=== PATIENT | female | born 2000 | race Caucasian/White ===

== ENCOUNTER 2020-07-09 14:08 | Emergency (ER) | payer MEDICAID, OTHER ==
[~2020-07-09] VITALS: Ht 165.1 cm; Wt 67.0 kg
[2020-07-09] MEDS ORDERED: ACETAMINOPHEN WITH CODEINE 300/30MG TABLET PO ONE (15:00)
[2020-07-09] MEDS ORDERED: HYDROCODONE/ACETAMINOPHEN 5/325MG TABLET PO ONE (19:45)
[2020-07-09 19:52] VITALS: BP 117/81
== END 2020-07-09 19:59 | disposition home or self-care (01) ==
LOC: ER 14:08
DX: R10.9 Unspecified abdominal pain (principal); M25.521 Pain in right elbow; M79.18 Myalgia, other site; V43.62XA Car passenger injured in collision with other type car in traffic accident, initial encounter; Y93.9 Activity, unspecified; Y92.410 Unspecified street and highway as the place of occurrence of the external cause
CPT/HCPCS: 71250; 73030; 73070; 73110; 73120; 74176; 81025; 99285

== ENCOUNTER 2022-11-06 17:03 | Inpatient (IN) | payer MEDICAID ==
[~2022-11-06] VITALS: Ht 157.5 cm; Wt 71.2 kg
[2022-11-06 18:13] LABS: BASOPHILS % 0.4 % (0.0-2.0); EOSINOPHILS % 0.1 % (0.0-5.0); HEMATOCRIT. 35.4 % (36.0-48.0); HEMOGLOBIN. 12.3 g/dL (12.0-16.0); LYMPHOCYTES % 28.4 % (20.0-50.0); MEAN CORPUSCULAR HEMOGLOBIN 31.8 pg (28.0-32.0); MEAN CORPUSCULAR VOLUME 91.4 fL (81.0-99.0); MEAN PLATELET VOLUME 6.8 fl (7.4-10.4); NEUTROPHILS % 65.1 % (40.0-76.0); PLATELET 323 x1000/uL (130-400); RED BLOOD CELL COUNT 3.88 mill/uL (4.2-5.4); RED CELL DISTRIBUTION WIDTH 13.7 % (11.6-14.6)
[2022-11-06 18:19] LABS: CHLORIDE 107 mEq/L (98-107)
[2022-11-06 18:42] LABS: B-HCG QUANTITATIVE 11787 mIU/mL (<3)
[2022-11-07 00:12] LABS: CLARITY URINE CLOUDY (CLEAR); COLOR URINE YELLOW (YELLOW); KETONES URINE 4+ (NEGATIVE); LEUKOCYTE ESTERASE URINE 1+ (NEGATIVE); NITRITE URINE NEGATIVE (NEGATIVE); OCCULT BLOOD URINE NEGATIVE (NEGATIVE); PROTEIN URINE 1+ (NEGATIVE); SPECIFIC GRAVITY URINE 1.028 (1.005-1.030)
[2022-11-07] MEDS ORDERED: METOCLOPRAMIDE HCL 10MG/2ML VIAL IV ONE (01:00)
[2022-11-07] MEDS ORDERED: SODIUM CHLORIDE 0.9% 1,000 ML IV ONE (01:00)
[2022-11-07] MEDS ORDERED: DIPHENHYDRAMINE 50MG/ML VIAL IV ONE ×2 (01:00→05:30)
[2022-11-07] MEDS ORDERED: LEVETIRACETAM 1000MG PREMIX 100 ML IV NR (03:09)
[2022-11-07] MEDS ORDERED: MORPHINE SULFATE 2 MG/ML CPJ (NOT FOR IM USE) IV ONE ×2 (03:46→08:15)
[2022-11-07] MEDS ORDERED: ONDANSETRON HCL 4MG/2ML INJ IV ONE (08:15)
[2022-11-07] MEDS ORDERED: ACETAMINOPHEN 325MG TABLET PO ONE (08:15)
[2022-11-07] MEDS ORDERED: PYRIDOXINE HCL 50MG TABLET PO SCH (08:30)
[2022-11-07] MEDS ORDERED: DEXT 5%/0.9% NACL 1,000 ML IV ONE (09:00)
[2022-11-07] MEDS: DEXT 5%/0.45% NACL 1000ML 1,000 ML IV SCH ×2 (11:00→21:00)
[2022-11-07] MEDS ORDERED: NALOXONE HCL 0.4MG/ML VIAL IV PRN (11:00)
[2022-11-07] MEDS: PANTOPRAZOLE SODIUM 40 MG/VIAL IV SCH (11:30)
[2022-11-07] MEDS ORDERED: MORPHINE SULFATE 2 MG/ML CPJ (NOT FOR IM USE) IV PRN (11:30)
[2022-11-07] MEDS ORDERED: CEFTRIAXONE 1 G PREMIX 50 ML IV SCH (12:00)
[2022-11-07 20:00] VITALS: BP 122/77
[2022-11-07] MEDS ORDERED: LEVETIRACETAM 500 MG in SODIUM CHLORIDE 0.9% 100 ML IV SCH (20:15)
[2022-11-07] MEDS ORDERED: MAGNESIUM HYDROXIDE 400MG/5ML 30ML UDC PO SCH (20:15)
[2022-11-07] MEDS: HYDROCODONE/ACETAMINOPHEN 5/325MG TABLET PO PRN (20:16)
[2022-11-07] MEDS: ONDANSETRON HCL 4MG/2ML INJ IV PRN (20:17)
[2022-11-07] MEDS: LEVETIRACETAM 500MG PREMIX 100 ML IV SCH (21:11)
[2022-11-07 22:00] VITALS: BP 122/71
[2022-11-08] VITALS: BP 112/76
[2022-11-08 04:00] VITALS: BP 102/68
[2022-11-08] MEDS: MORPHINE SULFATE 2 MG/ML CPJ (NOT FOR IM USE) IV PRN ×2 (06:22→20:52)
[2022-11-08] MEDS: DEXT 5%/0.45% NACL 1000ML 1,000 ML IV SCH ×2 (06:22→17:44)
[2022-11-08] MEDS: ONDANSETRON HCL 4MG/2ML INJ IV PRN ×2 (06:28→17:42)
[2022-11-08 07:09] LABS: BASOPHILS % 0.3 % (0.0-2.0); EOSINOPHILS % 0.8 % (0.0-5.0); HEMATOCRIT. 34.9 % (36.0-48.0); HEMOGLOBIN. 12.2 g/dL (12.0-16.0); MEAN CORPUSCULAR VOLUME 91.7 fL (81.0-99.0); MEAN PLATELET VOLUME 6.9 fl (7.4-10.4); MONOCYTES % 7.5 % (2.0-8.0); NEUTROPHILS % 53.4 % (40.0-76.0); PLATELET 330 x1000/uL (130-400); RED BLOOD CELL COUNT 3.81 mill/uL (4.2-5.4); RED CELL DISTRIBUTION WIDTH 13.9 % (11.6-14.6)
[2022-11-08 07:50] LABS: CHLORIDE 108 mEq/L (98-107)
[2022-11-08 12:00] VITALS: BP 117/65
[2022-11-08 16:00] VITALS: BP 120/65
[2022-11-08] MEDS: LEVETIRACETAM 500MG PREMIX 100 ML IV SCH ×2 (17:42→21:51)
[2022-11-08] MEDS: CEFTRIAXONE 1,000 MG in DEXTROSE 5% WATER 50 ML IV SCH ×4 (17:43→20:42)
[2022-11-08] MEDS: PANTOPRAZOLE SODIUM 40 MG/VIAL IV SCH (17:43)
[2022-11-08] MEDS: DOCUSATE SODIUM 250MG CAPSULE PO SCH (18:05)
[2022-11-08 20:00] VITALS: BP 108/66
[2022-11-09] VITALS: BP 105/77
[2022-11-09] MEDS: ONDANSETRON HCL 4MG/2ML INJ IV PRN ×3 (00:20→18:12)
[2022-11-09] MEDS: DEXT 5%/0.45% NACL 1000ML 1,000 ML IV SCH ×3 (03:42→23:40)
[2022-11-09 04:00] VITALS: BP 101/65
[2022-11-09 08:00] VITALS: BP 110/69
[2022-11-09] MEDS: PANTOPRAZOLE SODIUM 40 MG/VIAL IV SCH (08:51)
[2022-11-09] MEDS: DOCUSATE SODIUM 250MG CAPSULE PO SCH (08:51)
[2022-11-09 12:00] VITALS: BP 110/70
[2022-11-09] MEDS: LEVETIRACETAM 500MG PREMIX 100 ML IV SCH ×2 (13:03→20:47)
[2022-11-09] MEDS: MORPHINE SULFATE 2 MG/ML CPJ (NOT FOR IM USE) IV PRN (18:05)
[2022-11-09 20:00] VITALS: BP 109/75
[2022-11-09] MEDS ORDERED: ONDA4TAB50 MT (20:14)
[2022-11-09] MEDS ORDERED: KEPP500 MT (20:16)
[2022-11-10] VITALS: BP 119/70
[2022-11-10] MEDS: ONDANSETRON HCL 4MG/2ML INJ IV PRN ×2 (00:41→08:45)
[2022-11-10 04:00] VITALS: BP 102/69
[2022-11-10] MEDS: PANTOPRAZOLE SODIUM 40 MG/VIAL IV SCH (08:36)
[2022-11-10] MEDS: DOCUSATE SODIUM 250MG CAPSULE PO SCH (08:37)
[2022-11-10] MEDS: LEVETIRACETAM 500MG PREMIX 100 ML IV SCH ×2 (08:37→21:44)
[2022-11-10] MEDS: DEXT 5%/0.45% NACL 1000ML 1,000 ML IV SCH ×2 (08:45→18:30)
[2022-11-10] MEDS: MAGNESIUM/ALUMINUM HYDROXIDE/SIMETHICONE 30ML UDC PO PRN (10:17)
[2022-11-10] MEDS: MORPHINE SULFATE 2 MG/ML CPJ (NOT FOR IM USE) IV PRN ×2 (11:39→18:30)
[2022-11-10] MEDS: ONDANSETRON HCL 4MG/2ML INJ IV SCH ×2 (14:21→21:39)
[2022-11-10] MEDS: HYDROCODONE/ACETAMINOPHEN 5/325MG TABLET PO PRN ×2 (14:21→21:27)
[2022-11-10] MEDS: CEFTRIAXONE 1,000 MG in DEXTROSE 5% WATER 50 ML IV SCH (15:00)
[2022-11-10] MEDS ORDERED: POTASSIUM CHLORIDE 20MEQ TABLET SR PO NR (15:15)
[2022-11-10] MEDS: METOCLOPRAMIDE HCL 10MG/2ML VIAL IV SCH ×2 (16:30→20:15)
[2022-11-10] MEDS ORDERED: METOCLOPRAMIDE HCL 5MG TABLET PO SCH (18:00)
[2022-11-10 20:00] VITALS: BP 116/72
[2022-11-11] VITALS: BP 105/65
[2022-11-11] MEDS: METOCLOPRAMIDE HCL 10MG/2ML VIAL IV SCH ×7 (00:46→20:06)
[2022-11-11] MEDS: MORPHINE SULFATE 2 MG/ML CPJ (NOT FOR IM USE) IV PRN ×3 (00:51→20:06)
[2022-11-11] MEDS: ONDANSETRON HCL 4MG/2ML INJ IV SCH (03:00)
[2022-11-11 04:00] VITALS: BP 96/65
[2022-11-11] MEDS: ONDANSETRON HCL 4MG/2ML INJ IV PRN (04:02)
[2022-11-11] MEDS: DEXT 5%/0.45% NACL 1000ML 1,000 ML IV SCH ×2 (05:29→15:47)
[2022-11-11] MEDS: OMEPRAZOLE 20MG CAPSULE EXTENDED RELEASE PO SCH (06:31)
[2022-11-11 07:36] LABS: CHLORIDE 109 mEq/L (98-107)
[2022-11-11 07:43] LABS: BASOPHILS % 0.3 % (0.0-2.0); EOSINOPHILS % 1.2 % (0.0-5.0); HEMATOCRIT. 34.3 % (36.0-48.0); LYMPHOCYTES % 31.7 % (20.0-50.0); MEAN CORPUSCULAR VOLUME 91.3 fL (81.0-99.0); MEAN PLATELET VOLUME 6.9 fl (7.4-10.4); MONOCYTES % 9.4 % (2.0-8.0); NEUTROPHILS % 57.4 % (40.0-76.0); PLATELET 354 x1000/uL (130-400); RED BLOOD CELL COUNT 3.76 mill/uL (4.2-5.4)
[2022-11-11] MEDS: DOCUSATE SODIUM 250MG CAPSULE PO SCH (12:07)
[2022-11-11] MEDS: LEVETIRACETAM 500MG PREMIX 100 ML IV SCH ×2 (12:10→20:35)
[2022-11-11] MEDS: CEFTRIAXONE 1,000 MG in DEXTROSE 5% WATER 50 ML IV SCH (14:04)
[2022-11-12] VITALS: BP 116/72
[2022-11-12] MEDS: MORPHINE SULFATE 2 MG/ML CPJ (NOT FOR IM USE) IV PRN ×3 (00:18→11:24)
[2022-11-12] MEDS: METOCLOPRAMIDE HCL 10MG/2ML VIAL IV SCH ×8 (00:18→23:34)
[2022-11-12] MEDS: DEXT 5%/0.45% NACL 1000ML 1,000 ML IV SCH ×3 (00:19→23:34)
[2022-11-12 04:00] VITALS: BP 129/85
[2022-11-12] MEDS: OMEPRAZOLE 20MG CAPSULE EXTENDED RELEASE PO SCH (07:20)
[2022-11-12 08:00] VITALS: BP 126/81
[2022-11-12] MEDS: DOCUSATE SODIUM 250MG CAPSULE PO SCH (09:00)
[2022-11-12 12:00] VITALS: BP 128/83
[2022-11-12 16:00] VITALS: BP 118/87
[2022-11-12 20:00] VITALS: BP 120/83
[2022-11-12] MEDS: ACETAMINOPHEN 325MG TABLET PO PRN (20:03)
[2022-11-12] MEDS: LEVETIRACETAM 500MG PREMIX 100 ML IV SCH (20:37)
[2022-11-12] MEDS: MAGNESIUM/ALUMINUM HYDROXIDE/SIMETHICONE 30ML UDC PO PRN (20:54)
[2022-11-13] VITALS: BP 103/67
[2022-11-13 04:00] VITALS: BP 114/63
[2022-11-13] MEDS: METOCLOPRAMIDE HCL 10MG/2ML VIAL IV SCH ×4 (04:00→16:27)
[2022-11-13] MEDS: ACETAMINOPHEN 325MG TABLET PO PRN ×2 (04:47→16:27)
[2022-11-13] MEDS: DEXT 5%/0.45% NACL 1000ML 1,000 ML IV SCH (07:00)
[2022-11-13 07:19] LABS: BASOPHILS % 0.8 % (0.0-2.0); EOSINOPHILS % 1.2 % (0.0-5.0); HEMATOCRIT. 36.4 % (36.0-48.0); HEMOGLOBIN. 13.3 g/dL (12.0-16.0); LYMPHOCYTES % 31.2 % (20.0-50.0); MEAN CORPUSCULAR HEMOGLOBIN 32.8 pg (28.0-32.0); MEAN CORPUSCULAR VOLUME 89.8 fL (81.0-99.0); MEAN PLATELET VOLUME 7.5 fl (7.4-10.4); MONOCYTES % 10.8 % (2.0-8.0); PLATELET 352 x1000/uL (130-400); RED BLOOD CELL COUNT 4.06 mill/uL (4.2-5.4); RED CELL DISTRIBUTION WIDTH 13.6 % (11.6-14.6)
[2022-11-13 08:00] VITALS: BP 95/59
[2022-11-13] MEDS: LEVETIRACETAM 500MG PREMIX 100 ML IV SCH (09:00)
[2022-11-13] MEDS: OMEPRAZOLE 20MG CAPSULE EXTENDED RELEASE PO SCH (09:42)
[2022-11-13] MEDS: DOCUSATE SODIUM 250MG CAPSULE PO SCH (09:42)
[2022-11-13 10:10] LABS: CHLORIDE 108 mEq/L (98-107)
[2022-11-13] MEDS ORDERED: METO-293 MT (11:27)
[2022-11-13 12:00] VITALS: BP 92/59
[2022-11-13 16:00] VITALS: BP 113/62
[2022-11-13 16:08] VITALS: BP 95/60
== END 2022-11-13 17:15 | disposition home or self-care (01) | DRG 566 ==
LOC: ER 17:13 → EDBEDREQ 11-07 08:22 → MICUSO 11-07 09:13 → EDBEDREQTM 11-07 09:17 → EDBEDREQ 11-07 09:17 → 6EST 11-07 21:58
PROVIDERS: ADMIT Internal Medicine; ATTEND Internal Medicine
PROC: 4A00X4Z Measurement of Central Nervous Electrical Activity, External Approach (ICD-10-PCS; principal; 2022-11-09)
DX: O21.1 Hyperemesis gravidarum with metabolic disturbance (principal); O23.12 Infections of bladder in pregnancy, second trimester; O99.352 Diseases of the nervous system complicating pregnancy, second trimester; G40.909 Epilepsy, unspecified, not intractable, without status epilepticus; O99.282 Endocrine, nutritional and metabolic diseases complicating pregnancy, second trimester; Z3A.18 18 weeks gestation of pregnancy; J45.909 Unspecified asthma, uncomplicated; O99.512 Diseases of the respiratory system complicating pregnancy, second trimester; K29.70 Gastritis, unspecified, without bleeding; Z91.010 Allergy to peanuts; O99.612 Diseases of the digestive system complicating pregnancy, second trimester; N30.00 Acute cystitis without hematuria; Z3A.15 15 weeks gestation of pregnancy
CPT/HCPCS: 36415; 76700; 76805; 76857; 80048; 80051; 80053; 80076; 81003; 82010; 82962; 83605; 84207; 84702; 85025; 95816; 99285; C1893; C9113; J0696; J1200; J1953; J2270; J2405; J2765; J7030; J7060